=== PATIENT | female | born 1965 | race American Indian/Alaskan Native ===

== ENCOUNTER → 2018-10-10 09:39 | Outpatient (CLI) | payer MEDICAID, SELFPAY ==
--- NOTE | 2018-10-10 | DI.MG.S_ITS ---
BILATERAL DIGITAL SCREENING MAMMOGRAM 3D/2D WITH CAD: 10/10/2018 CLINICAL: Routine screening. Routine screening. Comparison is made to exams dated: 04/26/2017 mammogram, 11/10/2016 mammogram, and 04/21/2016 mammogram - [facility]. There are scattered fibroglandular elements in both breasts. Current study was also evaluated with a Computer Aided Detection (CAD) system. There are a grouped calcifications in the left breast at 5 o'clock middle depth. There is architectural distortion associated with the calcifications. No other significant masses, calcifications, or other findings are seen in either breast. IMPRESSION: INCOMPLETE: NEEDS ADDITIONAL IMAGING EVALUATION The grouped calcifications in the left breast are indeterminate. Spot magnification and spot compression views are recommended. This exam was interpreted at Station ID: [id number]. NOTE: For mammograms, a report in lay terms will be sent to the patient. Approximately 15% of breast malignancies will not be visualized mammographically. In the management of a palpable breast mass, a negative mammogram must not discourage biopsy of a clinically suspicious lesion. Electronically Signed By: Ashely marcos/denice:10/11/2018 11:05:44 letter sent: Additional Imaging Needed ACR BI-RADS Category 0: Incomplete [id number]
== END ==
PROVIDERS: PCP Family Medicine; Visit Provider Physician Assistant
DX: Z12.31 Encounter for screening mammogram for malignant neoplasm of breast (principal)
CPT/HCPCS: 77063; 77067

== ENCOUNTER → 2018-10-29 13:37 | Outpatient (CLI) | payer MEDICAID, SELFPAY ==
--- NOTE | 2018-10-29 | DI.MG.S_ITS ---
UNILATERAL LEFT DIGITAL DIAGNOSTIC MAMMOGRAM 3D/2D WITH ADDITIONAL VIEWS: 10/29/2018 CLINICAL: Additional evaluation requested from prior study. Comparison is made to exams dated: 10/10/2018 mammogram, 04/26/2017 mammogram, 11/10/2016 mammogram, and 04/21/2016 mammogram - [facility]. There are scattered fibroglandular elements in left breast. Grouped punctate calcifications in the lower outer left breast at middle depth identified on comparison screening mammogram persist with additional views. The reported architectural distortion seen on comparison screening mammogram associated with the calcifications is less apparent on additional views. A coil-shaped biopsy clip is identified in the outer left breast at middle depth. IMPRESSION: INCOMPLETE: NEEDS ADDITIONAL IMAGING EVALUATION Grouped punctate calcifications in the lower outer left breast at middle depth identified on comparison screening mammogram persist with additional views. Reported architectural distortion seen on comparison screening mammogram associated with the calcifications is less apparent on additional views. A targeted diagnostic ultrasound of the lower outer left breast is recommended for further evaluation. These results and recommendations were discussed with the patient in person at the time of the exam by Dr. Corea. This exam was interpreted at Station ID: [id number]. NOTE: For mammograms, a report in lay terms will be sent to the patient. Approximately 15% of breast malignancies will not be visualized mammographically. In the management of a palpable breast mass, a negative mammogram must not discourage biopsy of a clinically suspicious lesion. Electronically Signed By: Ed Corea M.D. ecl/:10/30/2018 12:16:53 Entry: - 10/30/2018 12:16:53 letter sent: Need Ultrasound ACR BI-RADS Category 0: Incomplete [id number]
== END ==
PROVIDERS: PCP Family Medicine; Visit Provider Physician Assistant
DX: R92.1 Mammographic calcification found on diagnostic imaging of breast (principal)
CPT/HCPCS: 77065; G0279

== ENCOUNTER → 2018-11-04 09:39 | Outpatient (CLI) | payer MEDICAID, SELFPAY ==
--- NOTE | 2018-11-04 | DI.US.S_ITS ---
LIMITED ULTRASOUND OF LEFT BREAST: 11/04/2018 CLINICAL: Patient returns today to evaluate an architectural distortion containing calcs in the left breast. Comparison is made to exams dated: 10/29/2018 mammogram, 10/10/2018 mammogram, 04/26/2017 mammogram, 11/10/2016 mammogram, and 04/21/2016 mammogram - [facility]. Color flow ultrasound of the left breast lower outer quadrant was performed. [place] scale images of the real-time examination were reviewed. No abnormalities were seen sonographically in the left breast. IMPRESSION: BENIGN There is no sonographic evidence of malignancy. A 1 year screening mammogram is recommended. This exam was interpreted at Station ID: [id number]. Electronically Signed By: Wenceslao severino/denice:11/04/2018 10:26:46 letter sent: Normal Exam Ultrasound BI-RADS: 2 Benign
== END ==
PROVIDERS: PCP Family Medicine; Visit Provider Physician Assistant
DX: R92.1 Mammographic calcification found on diagnostic imaging of breast (principal); N64.89 Other specified disorders of breast
CPT/HCPCS: 76642

== ENCOUNTER → 2020-12-17 10:46 | Outpatient (CLI) | payer MEDICAID, SELFPAY ==
--- NOTE | 2020-12-17 10:51 | DI.RAD.S_ITS ---
PROCEDURE: XR FINGER RT MIN 2V INDICATIONS: RT THUMB CATCHING TECHNIQUE: AP hand, 2 views of the right 1st finger(s) acquired. COMPARISON: None. FINDINGS: Bones: No fractures or dislocations. No suspicious bony lesions. 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 Soft tissues: No suspicious soft tissue calcifications. IMPRESSION: No fracture. No acute osseous lesion. If symptoms and/or clinical suspicion for pathology persists, further assessment with repeat radiographs (7-10 days) or advanced imaging (e.g. CT, MRI or bone scan) should be considered. Dictated by: Cora Del Cid MD, PhD on 12/17/2020 at 17:18 Approved by: Cora Del Cid MD, PhD on 12/17/2020 at 17:19
== END ==
PROVIDERS: PCP Family Medicine; Referring Provider Family Medicine; Visit Provider Family Medicine
DX: M65.311 Trigger thumb, right thumb (principal); M18.11 Unilateral primary osteoarthritis of first carpometacarpal joint, right hand; M19.041 Primary osteoarthritis, right hand
CPT/HCPCS: 73140

== ENCOUNTER 2021-02-03 08:30 | Emergency (ER) | payer MEDICAID, SELFPAY ==
[2021-02-03 08:49] VITALS: BP 139/89; PULSE 104; RESP 18; TEMP 37.3; O2SAT 95; BMI 30.1
--- NOTE | 2021-02-03 09:14 | ED.FEMALEGU ---
HPI - Female Genitourinary General Chief complaint: Urogenital-Female Stated complaint: lower left abdominal and back pain, worsening Time Seen by Provider: 02/03/21 08:55 Source: patient Mode of arrival: Ambulatory Limitations: no limitations History of Present Illness HPI Narrative: Patient is a 55-year-old female with history of type 2 diabetes who is noncompliant with her medication presenting with left-sided flank pain radiating around to her front. She actually feels like she is it is stabbing straight through her. It has been ongoing for about a month but the last 1-2 days has gotten significantly worse. She has been taking Tylenol and ibuprofen for it which does seem to help. She feels like she is really sweaty when the pain is intense. She has not had any nausea or vomiting. She denies any painful or frequent urination. No prior history of kidney stone. MD Complaint: other (Left flank pain) Onset (ago): day(s) Related Data Home Medications Medication Instructions Recorded Confirmed glipizide [Glucotrol XL] 5 mg PO QDAY #0 12/01/16 metformin [Fortamet] 500 mg PO AMCC #0 12/01/16 cholecalciferol (vitamin D3) 1,000 unit PO QDAY #0 12/29/16 [Vitamin D3] metformin [Glucophage] 1,000 mg PO BIDCC #0 12/29/16 Previous Rx's Medication Instructions Recorded oxycodone-acetaminophen 0 tab PO Q3HP PRN #20 tab 12/29/16 cephalexin 500 mg PO BID 7 Days #14 cap 02/03/21 Allergies Allergy/AdvReac Type Severity Reaction Status Date / Time No Known Allergies Allergy Uncoded 01/30/18 12:53 Review of Systems Review of Systems Narrative: GENERAL: Denies chills, fatigue, malaise, fever, sweats, travel HEENT: Denies sinus pain, ear pain, sore throat, difficulty swallowing, neck pain RESPIRATORY: Denies dyspnea, cough, wheezing, hemoptysis, sputum. CARDIOVASCULAR: Denies chest pain, palpitations, orthopnea, edema GASTROINTESTINAL: Denies nausea, vomiting, abdominal pain, diarrhea, constipation, melena. : + left flank pain MUSCULOSKELETAL: Denies weakness, joint pain, or bony pain SKIN: No rash, no erythema, no pruritus NEUROLOGIC: Denies weakness, dizziness, headache, numbness, change in speech, confusion PSYCHIATRIC: No concerning psychosocial issues. 12 point review of systems is negative except for those stated above and HPI Patient History Medical History Type 2 diabetes mellitus Surgical History Status post surgery (12/29/16) Substance Use Type: marijuana Exam Initial Vital Signs Initial Vital Signs: Vital Signs Temperature 99.1 F 02/03/21 08:49 Pulse Rate 104 H 02/03/21 08:49 Respiratory Rate 18 02/03/21 08:49 Blood Pressure 139/89 02/03/21 08:49 Pulse Oximetry 95 02/03/21 08:49 GENERAL: Alert pleasant 55-year-old female and in no acute distress. HEENT: Head atraumatic,EOMI, pupils reactive, face symmetric, moist mucous membranes CARDIOVASCULAR: Regular rate and rhythm without murmurs, rubs or gallops. RESPIRATORY: Breath sounds equal bilaterally, no wheezes rales or rhonchi. ABDOMEN: Soft, nontender. Normoactive bowel sounds all 4 quadrants. No guarding or rebound. : Mild left CVA tenderness EXTREMITIES: Normal range of motion, no clubbing or edema. Neurovascularly intact NEUROLOGICAL: Alert and oriented x4. SKIN: Warm, dry, no laceration, no petechiae, no rashes or lesions. Course Orders Ordered: ED Orders 02/03/21 09:00 Urine Culture Stat Urine Microscopic Stat 02/03/21 09:20 CT kidney ureter bladder (KUB) Stat 02/03/21 09:40 Complete Blood Count AUTO DIFF Stat Comprehensive Metabolic Panel Stat Lipase Stat Discontinued Medications Ketorolac Tromethamine (Ketorolac 60 Mg/2 Ml Vial) 15 mg IV NOW ONE Stop: 02/03/21 09:16 Last Admin: 02/03/21 09:44 Dose: 15 mg Documented by: LANCE Vital Signs Vital signs: Vital Signs - 8 hr 02/03/21 08:49 02/03/21 10:49 Temperature 99.1 F Pulse Rate 104 H 104 H Respiratory Rate 18 18 Blood Pressure 139/89 132/83 Pulse Oximetry 95 96 MDM - Female Genitourinary Lab Data Attestation: I reviewed the patient's lab results. Result diagrams: 02/03/21 09:40 02/03/21 09:40 Labs: Lab Results 02/03/21 02/03/21 02/03/21 Range/Units 09:00 09:40 09:40 WBC 10.2 (4.5-11.0) X10^3/uL RBC 4.58 (4.0-5.2) X10^6/uL Hgb 13.1 (12.0-16.0) g/dL Hct 39.7 (36-46) % MCV 86.6 (80-100) fL MCH 28.7 (26-34) PG MCHC 33.1 (30-36) % RDW 13.6 (11.6-14.8) % Plt Count 229 (150-400) X10^3/uL Neut % (Auto) 63.7 (50-75) % Lymph % (Auto) 25.2 (25-40) % [place] % (Auto) 9.7 (3-14) % Eos % (Auto) 0.9 L (2-4) % Baso % (Auto) 0.5 (0-2) % Neut # (Auto) 6500 (8167-5211) /uL Lymph # (Auto) 2600 (3961-7092) /uL [place] # (Auto) 1000 H (0-900) /uL Eos # (Auto) 100 (0-450) /uL Baso # (Auto) 0 (0-100) /uL Sodium 134 L (137-145) mmol/L Potassium 4.0 (3.4-5.1) mmol/L Chloride 99 (98-107) mmol/L Carbon Dioxide 26 (22-32) mmol/L BUN 8 (7-17) mg/dL Creatinine 0.47 L (0.52-1.04) mg/dL Estimated GFR > 60.0 (>60) mL/min BUN/Creatinine Ratio 17.0 (6-22) Glucose 261 H (70-100) mg/dL Calcium 9.8 (8.4-10.2) mg/dL Total Bilirubin 0.9 (0.2-1.3) mg/dL AST 19 (14-36) IU/L ALT 26 (<35) IU/L Alkaline Phosphatase 93 (38-126) U/L Total Protein 7.8 (6.3-8.2) g/dL Albumin 4.5 (3.5-5.0) g/dL Globulin 3.3 (1.7-4.1) g/dL Albumin/Globulin Ratio 1.4 (1.0-2.8) Lipase 68 (23-300) U/L Urine RBC 5-10/hpf H (0-5/HPF) Urine WBC 30-100/hpf H (0-5/HPF) Ur Squamous Epith Cells 1-5 /hpf (0-5/HPF) Amorphous Sediment 2+ Urine Bacteria Many (>30) H (None) Ur Culture Indicated? Specimen cultured Urine Dip Bedside Urine Glucose 1000 mg/dl Bedside Urine Bilirubin - Negative Bedside Urine Ketone + 15 Urine Specific [place] 1.030 Bedside Urine Occult Blood +++ Bedside Urine pH 6.0 Bedside Urine Protein + 30 Bedside Urine Urobilinogen - Negative Bedside Urine Nitrite + Positive Bedside Urine Leukocytes - Negative Esterase Imaging Data CT scan - abdomen/pelvis: Radiologist's Impression: PROCEDURE: CT KIDNEY URETER BLADDER (KUB) INDICATIONS: left flank pain TECHNIQUE: Noncontrast 5 mm thick sections acquired from the diaphragms to the symphysis. 5 mm thick coronal and sagittal reformats were then performed. For radiation dose reduction, the following was used: automated exposure control, adjustment of mA and/or kV according to patient size. COMPARISON: None. FINDINGS: Image quality: Excellent. Lung bases: Lung bases are clear. Heart size is normal. Small hiatal hernia. Urinary system: There is a 2 mm stone in the inferior pole of the left kidney. There is mild left perinephric stranding and periureteral stranding. No ureteral stones are identified. Both kidneys are normal in size. No hydronephrosis. There may be a 9 mm parapelvic cyst in the left kidney. Both ureters appear non-dilated throughout their expected courses. Bladder wall thickness is normal; no calcified bladder stones. Other solid organs: Hepatic steatosis. Liver is normal in size. Gallbladder is absent . Pancreas is normal in contours. Spleen is normal in size. No adrenal nodules. Peritoneum and bowel: Unenhanced bowel loops demonstrate normal wall thickness and caliber. There are colonic diverticula in sigmoid colon. No diverticulitis. Normal appendix. No free fluid or air. Nodes and vessels: No retroperitoneal or mesenteric adenopathy by size criteria. Aorta and inferior vena cava are normal in caliber. Abdominal wall: Tiny fat containing umbilical hernia. Pelvis: Uterus is normal. Ovaries are unremarkable. No free fluid in the cul-de-sac or adnexa. No inguinal hernias or adenopathy. Bones: No suspicious bony lesions. No vertebral body compression fractures. IMPRESSION: 1. Nephrolithiasis with a 2 mm nonobstructive stone in the inferior pole of the left kidney. There is mild left perinephric stranding and periureteral stranding. No ureteral stones are identified. The CT findings suggest that the patient may have passed stone recently. No hydronephrosis. 2. Diverticulosis without diverticulitis. 3. Hepatic steatosis. Dictated by: Darren Connors M.D. on 02/03/2021 at 9:31 MDM Narrative Medical decision making narrative: Patient is noted to have a UTI with positive nitrites and a 2 mm left-sided kidney stone. At this time she overall appears well and is not septic. Should her pain is well controlled and is not requiring anything in the ED. Discharge Plan Departure Patient Disposition: Home Clinical Impression: Kidney stone on left side Instructions: DI for Kidney Stones, DI for Urinary Tract Infection (UTI) Activity Restrictions/Additional Instructions: * You've been diagnosed with kidney stone, and bladder infection * What to do: Increase fluid intake * Please follow-up with your primary care provider in the next 2-3 days, you may require urology consultation please discuss this with -If you should have fever, or pain is uncontrolled with medication at home or any other concerning symptoms return to ER for further evaluation MEDICATIONS Take Motrin 800 mg every 8 hours as needed for pain Take Zofran every 4-6 hours if needed for nausea Take Keflex 500 mg twice a day for 7 days for infection--> SENT TO [facility] Prescriptions: New cephalexin 500 mg capsule 500 mg PO BID 7 Days Qty: 14 RF: 0 No Action glipizide [Glucotrol XL] 5 MG tablet extended release 24hr 5 mg PO QDAY Qty: 0 RF: 0 metformin [Fortamet] 500 MG tablet extended release 24hr 500 mg PO AMCC Qty: 0 RF: 0 metformin [Glucophage] 1,000 MG tablet 1,000 mg PO BIDCC Qty: 0 RF: 0 cholecalciferol (vitamin D3) [Vitamin D3] 1,000 UNIT tablet 1,000 unit PO QDAY Qty: 0 RF: 0 oxycodone-acetaminophen 5 MG/325 MG tablet 0 tab PO Q3HP PRNQty: 20 RF: 0 Referrals: Lorenza Koehler MD [Primary Care Provider] -
[2021-02-03 09:18] LABS: Amorphous Sediment Urine 2+; Bacteria Urine Many (>30); Culture Indicated Urine Specimen Cultured; RBC Urine 5-10/HPF (0-5/HPF); Squamous Epithelial Cell Urine 1-5 /HPF (0-5/HPF); WBC Urine 30-100/HPF (0-5/HPF)
--- NOTE | 2021-02-03 09:20 | DI.CT.S_ITS ---
PROCEDURE: CT KIDNEY URETER BLADDER (KUB) INDICATIONS: left flank pain TECHNIQUE: Noncontrast 5 mm thick sections acquired from the diaphragms to the symphysis. 5 mm thick coronal and sagittal reformats were then performed. For radiation dose reduction, the following was used: automated exposure control, adjustment of mA and/or kV according to patient size. COMPARISON: None. FINDINGS: Image quality: Excellent. Lung bases: Lung bases are clear. Heart size is normal. Small hiatal hernia. Urinary system: There is a 2 mm stone in the inferior pole of the left kidney. There is mild left perinephric stranding and periureteral stranding. No ureteral stones are identified. Both kidneys are normal in size. No hydronephrosis. There may be a 9 mm parapelvic cyst in the left kidney. Both ureters appear non-dilated throughout their expected courses. Bladder wall thickness is normal; no calcified bladder stones. Other solid organs: Hepatic steatosis. Liver is normal in size. Gallbladder is absent . Pancreas is normal in contours. Spleen is normal in size. No adrenal nodules. Peritoneum and bowel: Unenhanced bowel loops demonstrate normal wall thickness and caliber. There are colonic diverticula in sigmoid colon. No diverticulitis. Normal appendix. No free fluid or air. Nodes and vessels: No retroperitoneal or mesenteric adenopathy by size criteria. Aorta and inferior vena cava are normal in caliber. Abdominal wall: Tiny fat containing umbilical hernia. Pelvis: Uterus is normal. Ovaries are unremarkable. No free fluid in the cul-de-sac or adnexa. No inguinal hernias or adenopathy. Bones: No suspicious bony lesions. No vertebral body compression fractures. IMPRESSION: 1. Nephrolithiasis with a 2 mm nonobstructive stone in the inferior pole of the left kidney. There is mild left perinephric stranding and periureteral stranding. No ureteral stones are identified. The CT findings suggest that the patient may have passed stone recently. No hydronephrosis. 2. Diverticulosis without diverticulitis. 3. Hepatic steatosis. Dictated by: Darren Connors M.D. on 02/03/2021 at 9:31 Approved by: Darren Connors M.D. on 02/03/2021 at 9:38
[2021-02-03] MEDS: KETOROLAC 60 MG/2 ML VIAL 15 MG IV (09:44)
[2021-02-03 09:51] LABS: Add Manual Diff / Slide Review NO; Basophils Absolute Auto 0 /uL (0-100); Basophils Percent Auto 0.5 % (0-2); Eosinophils Absolute Auto 100 /uL (0-450); Eosinophils Percent Auto 0.9 % (2-4); Hematocrit 39.7 % (36-46); Hemoglobin 13.1 g/dL (12.0-16.0); Lymphocytes Absolute Auto 2600 /uL (1100-4500); Lymphocytes Percent Auto 25.2 % (25-40); Mean Corpuscular HGB Conc 33.1 % (30-36); Mean Corpuscular Hemoglobin 28.7 PG (26-34); Mean Corpuscular Volume 86.6 fL (80-100); Monocytes Absolute Auto 1000 /uL (0-900); Monocytes Percent Auto 9.7 % (3-14); Neutrophils Absolute Auto 6500 /uL (1500-7000); Neutrophils Percent Auto 63.7 % (50-75); Platelet Count 229 X10^3/uL (150-400); Red Blood Cell Count 4.58 X10^6/uL (4.0-5.2); Red Cell Distribution Width 13.6 % (11.6-14.8); White Blood Cell Count 10.2 X10^3/uL (4.5-11.0)
[2021-02-03 09:56] LABS: Alanine Aminotransferase 26 IU/L (<35); Albumin 4.5 g/dL (3.5-5.0); Albumin Globulin Ratio 1.4 (1.0-2.8); Alkaline Phosphatase 93 U/L (38-126); Aspartate Aminotransferase 19 IU/L (14-36); Bilirubin Total 0.9 mg/dL (0.2-1.3); Blood Urea Nitrogen 8 mg/dL (7-17); Calcium 9.8 mg/dL (8.4-10.2); Carbon Dioxide 26 mmol/L (22-32); Chloride 99 mmol/L (98-107); Estimated Glomerular Filt Rate > 60.0 mL/min (>60); Globulin 3.3 g/dL (1.7-4.1); Glucose 261 mg/dL (70-100); HEMOLYSIS < 15 (0-50); Lipase 68 U/L (23-300); Sodium 134 mmol/L (137-145); Total Protein 7.8 g/dL (6.3-8.2)
[2021-02-03 10:49] VITALS: BP 132/83; PULSE 104; RESP 18; O2SAT 96
== END 2021-02-03 10:50 | disposition home or self-care (01) ==
PROVIDERS: Emergency Provider Emergency Medicine; PCP Family Medicine
DX: N20.0 Calculus of kidney (principal)
CPT/HCPCS: 36415; 74176; 80053; 81003; 81015; 83690; 85025; 87077; 87086; 87186; 96374; 99284; J1885

== ENCOUNTER 2022-01-16 08:47 | Emergency (ER) | payer MEDICAID, SELFPAY ==
[2022-01-16 09:01] VITALS: BP 138/74; PULSE 72; RESP 18; TEMP 36.7; O2SAT 98
--- NOTE | 2022-01-16 09:12 | DI.RAD.S_ITS ---
PROCEDURE: XR KNEE RT 3V INDICATIONS: fall with swelling TECHNIQUE: 3 views of the knee were acquired. COMPARISON: None. FINDINGS: Bones: No fractures or dislocations. No suspicious bony lesions. Soft tissues: There is a mild joint effusion. No suspicious soft tissue calcifications. IMPRESSION: Mild joint effusion, without a significant bony abnormality seen by plain film. If there is point tenderness (or other clinical suspicion for a fracture not seen on these images) then a dedicated CT could be considered for further evaluation, if clinically appropriate. If it would be helpful for clinical management decision making, please consider a dedicated, scheduled knee MRI for further evaluation (assuming that there is no contraindication). Dictated by: Garret Akins M.D. on 01/16/2022 at 8:35 Approved by: Garret Akins M.D. on 01/16/2022 at 8:37
--- NOTE | 2022-01-16 09:16 | ED_ITS ---
HPI - Extremity Injury (Lower) General Chief Complaint: Extremity Injury, Lower Stated Complaint: Fell, Swollen knee Time Seen by Provider: 01/16/22 09:05 Source: patient Mode of arrival: Wheelchair History of Present Illness HPI Narrative: Patient is a 56-year-old female here for evaluation of right knee swelling. On Sunday she states that she tripped and fell and landed on her right knee. She is unsure exactly how she landed on it. She tripped over some things that were on the floor. She also states she injured her right wrist but that has improved since the event. Did not hit her head. Not on anticoagulation. Has been ambu latory but does have discomfort in the right knee. States is a sharp pain on the inside of her knee. No prior injuries. Related Data Home Medications Medication Instructions Recorded Confirmed glipizide 5 mg tablet, extended 5 mg PO QDAY #0 12/01/16 release 24 hr (Glucotrol XL) metformin 500 mg tablet,extended 500 mg PO AMCC #0 12/01/16 release 24hr (Fortamet) cholecalciferol (vitamin D3) 25 1,000 unit PO QDAY #0 12/29/16 mcg (1,000 unit) tablet (Vitamin D3) metformin 1,000 mg tablet 1,000 mg PO BIDCC #0 12/29/16 (Glucophage) Previous Rx's Medication Instructions Recorded oxycodone-acetaminophen 5 mg-325 0 tab PO Q3HP PRN #20 tab 12/29/16 mg tablet Allergies Allergy/AdvReac Type Severity Reaction Status Date / Time No Known Drug Allergies Allergy Verified 01/16/22 09:14 Review of Systems Constitutional Constitutional: Reports as per HPI and Reports system reviewed and no additional complaints, except as documented Musculoskeletal Musculoskeletal: Reports system reviewed and no additional complaints, except as documented and Reports as per HPI Integumentary/Breasts Skin/Breast: Reports system reviewed and no additional complaints, except as documented and Reports as per HPI Neurologic Neurologic: Reports system reviewed and no additional complaints, except as documented and Reports as per HPI Hematologic/Lymphatic On Anticoagulants: No Patient History Medical History Type 2 diabetes mellitus Surgical History Status post surgery (12/29/16) Social History Smoking Status: Never smoker Smoking Status: Never smoker Substance Use Type: marijuana Exam Initial Vital Signs Initial Vital Signs: Vital Signs Temperature 98.1 F 01/16/22 09:01 Pulse Rate 72 01/16/22 09:01 Respiratory Rate 18 01/16/22 09:01 Blood Pressure 138/74 01/16/22 09:01 Pulse Oximetry 98 01/16/22 09:01 Const General: cooperative, healthy appearing and comfortable HENMT Head: normal to inspection and normocephalic Cardio Pulses: dorsalis pedis present on the right Skin General: no rashes or lesions noted Neuro General: patient alert, patient awake, patient oriented x3 and moves all extremities Sensory Exam: no sensory deficits noted Extrem Other: Right ankle and right hip unremarkable. Patient does have an effusion around her right knee. She is able to do a straight leg raise there is no deficits noted in the quadriceps or patellar tendon. Her hamstrings are unremarkable. ACL MCL PCL and LCL all intact functional testing. Psych Appearance: grossly normal and well kempt Course Orders Ordered: ED Orders 01/16/22 09:12 XR knee RT 3V Stat Vital Signs Vital signs: Vital Signs - 8 hr 01/16/22 09:01 Temperature 98.1 F Pulse Rate 72 Respiratory Rate 18 Blood Pressure 138/74 Pulse Oximetry 98 MDM - Extremity Injury (Lower) Imaging Data Extremity x-ray #1: Radiologist's Impression: [address] [address] XRay Report Signed Patient: Dory Ludwig MR#: [id number] : 1965 Acct:[id number] Age/Sex: 56 / F Date of Service: 01/16/22 Loc: ED Accession Number: [id number] ?? Procedure: XR knee RT 3V Ordering Provider: Taurus Nielsen D.O. PROCEDURE:? XR KNEE RT 3V ? INDICATIONS:? fall with swelling ? TECHNIQUE:? 3 views of the knee were acquired.? ? COMPARISON:? None. ? FINDINGS:? ? Bones:? No fractures or dislocations.? No suspicious bony lesions.? ? Soft tissues:? There is a mild joint effusion.? No suspicious soft tissue calcifications. ? ? ? IMPRESSION:? Mild joint effusion, without a significant bony abnormality seen by plain film. ? If there is point tenderness (or other clinical suspicion for a fracture not seen on these images) then a dedicated CT could be considered for further evaluation, if clinically appropriate. ? If it would be helpful for clinical management decision making, please consider a dedicated, scheduled knee MRI for further evaluation (assuming that there is no contraindication).? ? ? Dictated by: Garret Akins M.D. on 01/16/2022 at 8:35 ? ? Approved by: Garret Akins M.D. on 01/16/2022 at 8:37 MDM Narrative Medical decision making narrative: Patient is neurovascularly intact. She does have a joint effusion otherwise no acute pathology found. No fractures noted on the x-rays. Informed patient of the findings. I suspect that her symptoms will improve over the next couple days. If they continue after the fusion is better that she may need further evaluation to include potential MRI or physical therapy. She was given return precautions. She expressed understanding and agreement with plan. Discharge Plan Departure Patient Disposition: Home Clinical Impression: Effusion of knee joint right Instructions: How To Perform RICE (Rest, Ice, Compress, Elevate) Activity Restrictions/Additional Instructions: The x-ray did not show any signs of fractures so you can walk 1 your right leg as tolerated. I recommend that you keep your leg elevated also place ice over the knee. Contact your primary doctor for a follow-up. Return to the emergency department for any new or worsening symptoms. Prescriptions: No Action glipizide [Glucotrol XL] 5 MG tablet extended release 24hr 5 mg PO QDAY Qty: 0 0RF metformin [Fortamet] 500 MG tablet extended release 24hr 500 mg PO AMCC Qty: 0 0RF metformin [Glucophage] 1,000 MG tablet 1,000 mg PO BIDCC Qty: 0 0RF cholecalciferol (vitamin D3) [Vitamin D3] 1,000 UNIT tablet 1,000 unit PO QDAY Qty: 0 0RF oxycodone-acetaminophen 5 MG/325 MG tablet 0 tab PO Q3HP PRNQty: 20 0RF Referrals: Lorenza Koehler MD [Primary Care Provider] -
--- NOTE | 2022-01-16 09:54 | PC.NURSE ---
defer assessment to provider.
== END 2022-01-16 09:56 | disposition home or self-care (01) ==
PROVIDERS: Emergency Provider Emergency Medicine; PCP Family Medicine
DX: M25.461 Effusion, right knee (principal); W01.0XXA Fall on same level from slipping, tripping and stumbling without subsequent striking against object, initial encounter
CPT/HCPCS: 73562; 99283

== ENCOUNTER → 2022-08-04 14:09 | Outpatient (CLI) | payer MEDICAID, SELFPAY ==
--- NOTE | 2022-08-04 | DI.RAD.S_ITS ---
PROCEDURE: XR HAND LT MIN 3V INDICATIONS: animal bite TECHNIQUE: 3 views of the hand(s) acquired. COMPARISON: None. FINDINGS: Bones: No fractures or dislocations. Carpal bones are normally aligned. No suspicious bony lesions. Soft tissues: No suspicious soft tissue calcifications. IMPRESSION: No fracture or foreign body. Dictated by: Ihsan Kaiser M.D. on 08/04/2022 at 16:16 Approved by: Ihsan Kaiser M.D. on 08/04/2022 at 16:16
== END ==
PROVIDERS: PCP Family Medicine; Referring Provider Physician Assistant; Visit Provider Physician Assistant
DX: S69.92XA Unspecified injury of left wrist, hand and finger(s), initial encounter (principal); X58.XXXA Exposure to other specified factors, initial encounter
CPT/HCPCS: 73130

== ENCOUNTER → 2025-01-14 10:23 | Outpatient (CLI) | payer MEDICAID, SELFPAY ==
--- NOTE | 2025-01-14 10:26 | DI.MG.S_ITS ---
MM screening mammo BI: 01/14/2025. BI-RADS: 2 CLINICAL: 59-year old female for bilateral screening mammogram. Tyrer-Cuzick lifetime risk of 5.0%. No personal or first-degree family history of breast cancer. PRIOR EXAMS 11/04/2018, 10/29/2018, 10/10/2018, 05/08/2017, 04/26/2017, 11/10/2016, 04/21/2016, 11/24/2015, 04/09/2015. MAMMOGRAPHY TECHNIQUE: 2D and 3D (tomosynthesis) digital mammographic views obtained, with additional images as needed for full coverage. Current study was also evaluated with a Computer Aided Detection (CAD) system. DENSITY B. There are scattered areas of fibroglandular density. MAMMOGRAPHY FINDINGS Right: No suspicious mass, asymmetry, microcalcification, or other abnormality seen. No significant change from comparison. Left: Biopsy marker present on the left. There are no suspicious masses, calcifications, or other findings in the breast. No significant change from comparison. IMPRESSION: Right * No evidence of malignancy. Left * No evidence of malignancy with benign findings. RECOMMENDATIONS Bilateral * Annual screening mammography. OVERALL ASSESSMENT CATEGORY BI-RADS-2: Benign. The [employer] recommends annual screening mammography beginning at age 40 for women with average risk of breast cancer. ELECTRONICALLY SIGNED: Ashely Anthony M.D. on 01/14/2025 at 12:10:33 PM PT Interpreting Station ID: [id number]
== END ==
PROVIDERS: PCP Family Medicine; Referring Provider Family Medicine; Visit Provider Family Medicine
DX: Z12.31 Encounter for screening mammogram for malignant neoplasm of breast (principal)
CPT/HCPCS: 77063; 77067

== ENCOUNTER → 2025-01-29 09:00 | Outpatient (CLI) | payer MEDICAID, SELFPAY ==
--- NOTE | 2025-01-29 09:03 | DI.RAD.S_ITS ---
PROCEDURE: XR SHOULDER LT MIN 2V INDICATIONS: L SHOULDER PAIN TECHNIQUE: 3 views of the shoulder were acquired. COMPARISON: None. FINDINGS: Bones: No fractures or dislocations. Moderate acromioclavicular joint and glenohumeral joint osteoarthritic changes are seen. No suspicious bony lesions. Visualized ribs appear intact. Soft tissues: No suspicious soft tissue calcifications. IMPRESSION: Moderate left shoulder joint osteoarthritis. No fracture or dislocation. No gross soft tissue abnormalities. Dictated by: Noah Bermeo M.D. on 01/29/2025 at 18:14 Approved by: Noah Bermeo M.D. on 01/29/2025 at 18:15
== END ==
PROVIDERS: PCP Family Medicine; Referring Provider Physician Assistant; Visit Provider Physician Assistant
DX: M19.012 Primary osteoarthritis, left shoulder (principal); M25.512 Pain in left shoulder
CPT/HCPCS: 73030

== ENCOUNTER → 2025-02-18 10:52 | Outpatient (CLI) | payer MEDICAID, SELFPAY ==
--- NOTE | 2025-02-18 10:57 | DI.RAD.S_ITS ---
PROCEDURE: XR CERVICAL SPINE 2V OR 3V INDICATIONS: NECK PAIN TECHNIQUE: 3 view(s) of the cervical spine were acquired. COMPARISON: None. FINDINGS: Bones: No fractures or dislocations to the C7 level. The lateral masses of C1 appear intact on the odontoid view. No suspicious bony lesions. Minimal degenerative changes. Soft tissues: No prevertebral soft tissue swelling. IMPRESSION: Minimal multilevel degenerative changes. No acute osseous abnormalities. Straightening of the normal cervical lordosis. Dictated by: Ignacio Brooks M.D. on 02/18/2025 at 14:43 Approved by: Ignacio Brooks M.D. on 02/18/2025 at 14:52
== END ==
PROVIDERS: Referring Provider Physician Assistant; Visit Provider Physician Assistant
DX: G44.209 Tension-type headache, unspecified, not intractable (principal)
CPT/HCPCS: 72040